=== PATIENT | female | born 1985 | race Two or more races ===

== ENCOUNTER 2017-05-16 13:39 | Emergency (ER) | payer MEDICAID ==
[~2017-05-16] VITALS: Ht 157.5 cm; Wt 83.9 kg
[2017-05-16 13:49] VITALS: BP 89/0
[2017-05-16] MEDS ORDERED: IBUPROFEN 100MG/5ML ORAL SUSP 100 MG/5 ML UD GT ONE (20:15)
[2017-05-16] MEDS ORDERED: IBUPROFEN 600 MG TAB PO ONE (20:30)
== END 2017-05-16 20:57 | disposition home or self-care (01) ==
LOC: ER 13:39
DX: S20.219A Contusion of unspecified front wall of thorax, initial encounter (principal); V43.52XA Car driver injured in collision with other type car in traffic accident, initial encounter; Y93.89 Activity, other specified; Y92.89 Other specified places as the place of occurrence of the external cause; Y99.8 Other external cause status
CPT/HCPCS: 93005